=== PATIENT | male | born 1980 ===

== ENCOUNTER 2021-02-03 09:47 | Day surgery (SDC) | payer BC ==
[2021-02-01 11:26] VITALS: BMI 28.7
[2021-02-03 10:48] VITALS: TEMP 98.5
[2021-02-03 10:58] LABS: Glucose,Whole Blood 87 mg/dL (75-99)
[2021-02-03] MEDS ORDERED: LACTATED RINGERS 1,000 ML IV ONE (11:03)
[2021-02-03] MEDS ORDERED: .fentaNYL (PF) 50 MCG/ML AMP ONE (11:27)
[2021-02-03] MEDS ORDERED: MIDAZOLAM 2 MG/2 ML VIAL ONE (11:27)
[2021-02-03 11:43] LABS: ALT 20 U/L (4-49); AST 22 U/L (17-59)
[2021-02-03] MEDS ORDERED: LACTATED RINGERS 1,000 ML IV SCH (11:45)
[2021-02-03] MEDS ORDERED: IV FLUID CONTINUATION 1,000 ML IV ONE (11:46)
--- NOTE | 2021-02-03 11:46 | P.PCN ---
Date of Procedure: 02/03/21 Description of Procedure: Procedure: 1.Lumbar puncture for CSF collection PREOPERATIVE DIAGNOSIS: Rule out multiple sclerosis, request from neurologist POSTOPERATIVE DIAGNOSIS: Rule out multiple sclerosis SURGEON: Ze Le ANESTHESIA: Local with 1% lidocaine, and IV sedation : Versed and fentanyl EBL: None. Specimen removed: 2.5 mL of CSF in each collecting tube X4 PROCEDURE INDICATION: The patient had history of foot pain, wants to rule out multiple sclerosis. Consulted for lumbar puncture for CSF collection send it for analysis. PROCEDURE DESCRIPTION: The patient was seen and identified. Risks, benefits, complications, and alternatives were discussed with the patient. The patient agreed to proceed with the procedure and signed the consent, and vital signs were stable. Patient was taken to the procedure area, and time out was completed. The patient was placed in sitting position on procedure. . The lumbosacral area was prepped and draped in the usual sterile fashion. Critical pause was taken. Vital signs were closely monitored during the procedure. Posterior superior iliac crest landmarks was identified . The midline lumbar space also identified. Approximately at the level of L4-L5 interspinous space, skin and deeper tissues were localized with 3 mL of 1% lidocaine. Using a 22 gauge 3.5 spinal needle entered into subarachnoid space, with 1 attempt. Clear CSF came out of the spinal needle. 2.5 mL of CSF fluid collected in each tube 4. Needle was withdrawn intact, skin was cleansed, and bandages were applied. COMPLICATIONS: None. DISPOSITION / PLANS: The patient was placed in a supine position and transferred to the recovery area in a stable condition for observation. Patient was discharged from the recovery room after meeting discharge criteria. Home discharge instructions given to the patient by the staff. The patient was reexamined prior to discharge. Patient recommended to drink plenty of water, and advised not to lift any heavy weights today.
[2021-02-03 11:59] LABS: T4, Free (Free Thyroxine) 0.94 ng/dL (0.78-2.19)
[2021-02-03 13:15] VITALS: BP 125/77; PULSE 77; RESP 20
[2021-02-03 18:40] LABS: Appearance,CSF Clear; CSF Tube Number 4; CSF Tube Volume 2.5; Nucleated Cells, CSF 2 u/L (0-5); Red Blood Cell,CSF 1 u/L (0-10)
[2021-02-03 22:34] LABS: Anti-DNA, DS unit <1.0 IU/mL; Anti-Smith Ab Interp NEGATIVE (NEGATIVE); DNA Double-Stranded NEGATIVE (NEGATIVE)
[2021-02-03 23:21] LABS: Rheumatoid Factor, Qnt <10 IU/mL (0-15)
[2021-02-04 00:47] LABS: Glucose, Body Fluid 58 mg/dL
[2021-02-04 01:41] LABS: Total Protein, Body Fluid <200 mg/dL
[2021-02-07 15:03] LABS: IgG - CSF 3.1 mg/dL (0.0 - 3.4); IgG/Albumin Index (CSF) 0.44 (0.00 - 0.77)
[2021-02-08 11:54] LABS: VDRL, Qualitative CSF Nonreactive (Nonreactive)
== END 2021-02-03 13:16 | disposition home or self-care (01) ==
LOC: ORPAIN 09:47
DX: R90.89 Other abnormal findings on diagnostic imaging of central nervous system (principal); Z88.5 Allergy status to narcotic agent; Z79.899 Other long term (current) drug therapy
CPT/HCPCS: 86592; 86235 ×3; 84439; 88108; 82040; 82042; 82784; 83916; 84443; 84450; 84460; 86431; 89050; 86618; 86780; 86038; 86225; 82945; 84157; 87801; 62270; J2250; J3010; 99152